=== PATIENT | female | born 1980 | race African-American/Black ===

== ENCOUNTER 2019-05-22 09:38 | Emergency (ER) | payer MEDICAID ==
[~2019-05-22] VITALS: Ht 167.6 cm; Wt 109.4 kg
[2019-05-22 09:52] VITALS: BP 137/94
[2019-05-22 11:03] LABS: CHLORIDE 106 mEq/L (98-107)
[2019-05-22 11:03] LABS: CLARITY URINE CLEAR (CLEAR); COLOR URINE YELLOW (YELLOW); KETONES URINE NEGATIVE (NEGATIVE); LEUKOCYTE ESTERASE URINE NEGATIVE (NEGATIVE); NITRITE URINE NEGATIVE (NEGATIVE); OCCULT BLOOD URINE NEGATIVE (NEGATIVE); PROTEIN URINE NEGATIVE (NEGATIVE); SPECIFIC GRAVITY URINE 1.019 (1.005-1.030)
[2019-05-22 11:10] LABS: BASOPHILS % 0.5 % (0.0-2.0); EOSINOPHILS % 0.5 % (0.0-5.0); HEMATOCRIT. 40.2 % (36.0-48.0); HEMOGLOBIN. 13.8 g/dL (12.0-16.0); LYMPHOCYTES % 30.5 % (20.0-50.0); MEAN CORPUSCULAR HEMOGLOBIN 30.6 pg (28.0-32.0); MEAN CORPUSCULAR VOLUME 89.3 fL (81.0-99.0); MEAN PLATELET VOLUME 8.5 fl (7.4-10.4); NEUTROPHILS % 62.5 % (40.0-76.0); PLATELET 275 x1000/uL (130-400); RED CELL DISTRIBUTION WIDTH 14.3 % (11.6-14.6)
[2019-05-23 05:11] LABS: HIV SCREEN 4G Non Reactive (Non Reactive)
[2019-05-26 08:12] LABS: NEISSERIA GONORRHOEAE NAA Negative (Negative)
== END 2019-05-22 12:52 | disposition home or self-care (01) ==
LOC: ER 09:38
DX: T74.21XA Adult sexual abuse, confirmed, initial encounter (principal); N89.8 Other specified noninflammatory disorders of vagina; Z98.890 Other specified postprocedural states; Y08.89XA Assault by other specified means, initial encounter
CPT/HCPCS: 36415; 80048; 81003; 85025; 86592; 86695; 86696; 87389; 87491; 87591; 99283

== ENCOUNTER 2020-02-01 16:40 | Emergency (ER) | payer MEDICAID ==
[~2020-02-01] VITALS: Ht 167.6 cm; Wt 98.0 kg
[2020-02-01 16:46] VITALS: BP 137/83
[2020-02-01] MEDS ORDERED: FLUORESCEIN SODIUM 1MG/STRIP LEFTEYE ONE (18:00)
[2020-02-01] MEDS ORDERED: TETRACAINE 0.5% OPHTH DROPS 4ML LEFTEYE ONE (18:00)
== END 2020-02-01 19:06 | disposition home or self-care (01) ==
LOC: ER 16:40
DX: H10.022 Other mucopurulent conjunctivitis, left eye (principal); Z98.890 Other specified postprocedural states
CPT/HCPCS: 99282

== ENCOUNTER 2023-08-25 15:09 | Emergency (ER) | payer MEDICAID ==
[~2023-08-25] VITALS: Ht 167.6 cm; Wt 109.5 kg
[2023-08-25 15:54] VITALS: BP 141/93; PULSE 108; RESP 22; TEMP 97.5; O2SAT 100
[2023-08-25] MEDS ORDERED: BENZ100C86 MT (16:15)
[2023-08-25] MEDS ORDERED: OFLO5DRO4 RIGHT EAR (16:15)
== END 2023-08-25 17:23 | disposition home or self-care (01) ==
LOC: ER 15:09
DX: J06.9 Acute upper respiratory infection, unspecified (principal); H92.03 Otalgia, bilateral; R05.9 Cough, unspecified
CPT/HCPCS: 99283